=== PATIENT | female | born 1990 | race Caucasian/White ===

== ENCOUNTER 2016-07-03 19:26 | Emergency (ER) | payer OTHER ==
[~2016-07-03 19:26] MED LIST: DOXY150T PO
== END 2016-07-03 20:30 | disposition left against medical advice (07) ==
LOC: EMS 19:32
DX: O26.90 Pregnancy related conditions, unspecified, unspecified trimester (principal); Z3A.00 Weeks of gestation of pregnancy not specified; Z53.21 Procedure and treatment not carried out due to patient leaving prior to being seen by health care provider